=== PATIENT | female | born 1935 | race Two or more races ===

== ENCOUNTER 2021-02-07 09:15 | Inpatient (IN) | payer OTHER ==
[~2021-02-07] VITALS: Ht 149.9 cm; Wt 47.2 kg
[2021-02-07] MEDS ORDERED: LYRICA225 MG PO (11:28)
[2021-02-07] MEDS ORDERED: GLUCOPHAGE XR500 MG PO (11:28)
[2021-02-07] MEDS ORDERED: COZAAR100 MG PO (11:28)
[2021-02-07] MEDS ORDERED: ARICEPT10 MG PO (11:29)
[2021-02-07] MEDS ORDERED: ATARAX25 MG PO (11:29)
[2021-02-10] MEDS ORDERED: ST. JOSEPH ASPI81 M2 (13:59)
[2021-02-10] MEDS ORDERED: PREGABALIN225 MG (14:03)
[2021-02-10] MEDS ORDERED: HYFIBER WI12 GM/302 (14:04)
== END 2021-02-11 13:24 | disposition home or self-care (01) | DRG 349 ==
LOC: SURH 02-10 09:15 → O/R 02-10 10:01 → SURH 02-10 17:30
PROVIDERS: ADMIT Surgery; ATTEND Surgery
PROC: 0DUR07Z Supplement Anal Sphincter with Autologous Tissue Substitute, Open Approach (ICD-10-PCS; 2021-02-10)
PROC: 0DBP7ZZ Excision of Rectum, Via Natural or Artificial Opening (ICD-10-PCS; principal; 2021-02-10 17:30)
DX: K62.3 Rectal prolapse (principal); R15.9 Full incontinence of feces; I11.9 Hypertensive heart disease without heart failure; I25.10 Atherosclerotic heart disease of native coronary artery without angina pectoris